=== PATIENT | female | born 1985 | race African-American/Black ===

== ENCOUNTER 2016-12-09 18:15 | Day surgery (SDC) | payer OTHER ==
[2016-12-09 18:20] VITALS: BMI 32.5
[2016-12-09] MEDS ORDERED: SODIUM CHLORIDE 1,000 ML IV STA (19:27)
[2016-12-09] MEDS ORDERED: ACETAMINOPHEN 1000 MG/100 ML VIAL (NON FORMULARY) IVPB ONE (19:27)
[2016-12-09] MEDS ORDERED: ACETAMINOPHEN INJECTION 100 ML IVPB ONE ×2 (19:31→20:01)
--- NOTE | 2016-12-09 19:36 | PDOC ---
History of Present Illness - History of Present Illness Initial Comments: 12/09/16 19:44 The patient is a 31 year old, A2, approximately 6 weeks , sent to the hospital by her BUCKET TURNER for an emergency D&C. The patient reports she began to experience progressively worsening vaginal bleeding 2 days ago. She was seen by her BUCKET TURNER yesterday, where a gestational US showed a heartbeat and closed cervical os. Today, she had a repeat US and no HR was detected, and she was sent to the hospital for further management of her care. The patient also complains of moderate lower back and lower abdominal pain. No fever or chills. No nausea, vomiting, or diarrhea. BUCKET TURNER: Dr. Wheeler <Bernadette Painting - Last Filed: 12/09/16 19:44> - General History Source: Patient Exam Limitations: No Limitations <Will Guillory - Last Filed: 12/09/16 20:03> - General Chief Complaint: Vaginal Bleeding Stated Complaint: PCP SENT Time Seen by Provider: 12/09/16 19:26 Past History <Bernadette Painting - Last Filed: 12/09/16 19:44> - Past Medical History Asthma: Yes - Surgical History Cholecystectomy: Yes - Psycho/Social/Smoking Cessation Hx Anxiety: No Suicidal Ideation: No Smoking Status: Yes Smoking History: Current every day smoker Have you smoked in the past 12 months: No Number of Cigarettes Smoked Daily: 1 Information on smoking cessation initiated: No Hx Alcohol Use: No Drug/Substance Use Hx: No <Will Guillory - Last Filed: 12/09/16 20:03> - Past Medical History Allergies/Adverse Reactions: Allergies Allergy/AdvReac Type Severity Reaction Status Date / Time No Known Allergies Allergy Verified 12/09/16 18:17 Home Medications: Ambulatory Orders Amoxicillin 500 mg PO BID #14 capsule 04/13/13 Carbamide Peroxide [Debrox] 15 ml AD BID #10 drops 04/13/13 Ibuprofen [Motrin -] 800 mg PO TID #30 tablet 04/13/13 No Home Medications 0 dose .ROUTE UTDICT 04/13/13 Ofloxacin Otic [Floxin Otic -] 10 drop AD DAILY 7 Days 04/13/13 Review of Systems - Review of Systems Able to Perform ROS?: Yes Comments:: 12/09/16 19:49 GENERAL/CONSTITUTIONAL: No fever or chills. No weakness. HEAD, EYES, EARS, NOSE AND THROAT: No change in vision. No ear pain or discharge. No sore throat CARDIOVASCULAR: No chest pain or shortness of breath. RESPIRATORY: No cough, wheezing, or hemoptysis. GASTROINTESTINAL: No nausea, vomiting, diarrhea or constipation. GENITOURINARY: +Vaginal bleedingx2 days with lower back pain and suprapubic pain back. No dysuria, frequency, or change in urination. MUSCULOSKELETAL: No joint or muscle swelling or pain. No neck pain. SKIN: No rash NEUROLOGIC: No headache, vertigo, loss of consciousness, or change in strength/ sensation. ENDOCRINE: No increased thirst. No abnormal weight change. HEMATOLOGIC/LYMPHATIC: No anemia, easy bleeding, or history of blood clots. ALLERGIC/IMMUNOLOGIC: No hives or skin allergy. <Bernadette Painting - Last Filed: 12/09/16 19:44> *Physical Exam - Vital Signs Last Vital Signs Temp Pulse Resp BP Pulse Ox 98.4 F 66 20 130/63 100 12/09/16 18:17 12/09/16 18:17 12/09/16 18:17 12/09/16 18:17 12/09/16 18:17 - Physical Exam Comments: 12/09/16 19:50 GENERAL: Awake, alert, and fully oriented. Uncomfortable appearing. HEAD: No signs of trauma EYES: PERRLA, EOMI, sclera anicteric, conjunctiva clear ENT: Auricles normal inspection, hearing grossly normal, nares patent, oropharynx clear without exudates. Moist mucosa NECK: Normal ROM, supple, no lymphadenopathy, JVD, or masses LUNGS: Breath sounds equal, clear to auscultation bilaterally. No wheezes, and no crackles HEART: Regular rate and rhythm, normal S1 and S2, no murmurs, rubs or gallops ABDOMEN: Suprapubic tenderness to palpation. Soft, normoactive bowel sounds. No guarding, no rebound. No masses EXTREMITIES: Normal range of motion, no edema. No clubbing or cyanosis. No cords, erythema, or tenderness NEUROLOGICAL: Cranial nerves II through XII grossly intact. Normal speech, normal gait SKIN: Warm, Dry, normal turgor, no rashes or lesions noted. <Bernadette Painting - Last Filed: 12/09/16 19:44> - Vital Signs Last Vital Signs Temp Pulse Resp BP Pulse Ox 98.4 F 66 20 130/63 100 12/09/16 18:17 12/09/16 18:17 12/09/16 18:17 12/09/16 18:17 12/09/16 18:17 <Will Guillory - Last Filed: 12/09/16 20:03> Medical Decision Making - Medical Decision Making 12/09/16 19:48 Case discussed with patient's BUCKET TURNER Dr. Wheeler. <Bernadette Painting - Last Filed: 12/09/16 19:44> - Medical Decision Making 12/09/16 19:51 A portion of this note was documented by scribe services under my direction. I have reviewed the details of the note, within reason, and agree with the documentation with the following case summary and management plan written by me. Patient treated in the ED. Nursing notes are reviewed and incorporated into the medical decision-making. Vital signs reviewed. Peripheral IV access obtained by the nurse, laboratory studies are drawn and sent, reviewed and interpreted by myself. Vital Signs Temp Pulse Resp BP Pulse Ox 98.4 F 66 20 130/63 100 12/09/16 18:17 12/09/16 18:17 12/09/16 18:17 12/09/16 18:17 12/09/16 18:17 31 year old F c/ hx asthma, ~[address] in [address] Dr. Wheeler for D&C. Pt had spotting yesterday. Had u/s done yesterday which show a FHR and was instructed to watch. Today, had worsening bleed. She had an ultrasound performed and demonstrated NO FHR. Pt was sent to ED for D&C. Case discussed with Dr. Wheeler. Pt to go to D&C tonight. Nursing reinforced steel placing supervisor Navya called and now aware. Pt kept NPO. Labs ordered. Case discussed in detail with admitting physician including history, physical exam and ancillary studies. Admitting physician has assumed care for the patient, will follow all pending diagnostics and will complete the evaluation and treatment. <Will Guillory - Last Filed: 12/09/16 20:03> *DC/Admit/Observation/Transfer - Attestations Scribe Attestion: 12/09/16 19:50 Documentation prepared by Bernadette Painting, acting as medical administrative technician for Will Guillory MD. <Bernadette Painting - Last Filed: 12/09/16 19:44> - Discharge Dispostion Admit: Yes <Will Guillory - Last Filed: 12/09/16 20:03> Diagnosis at time of Disposition: Antepartum hemorrhage Qualifiers: Trimester: first trimester Qualified Code(s): O46.91 - Antepartum hemorrhage, unspecified, first trimester - Discharge Dispostion Condition at time of disposition: Stable - Referrals Referrals: Misbah Garcia [Primary Care Provider] -
[2016-12-09 20:08] LABS: BASOPHIL 0.4 % (0-2.0); EOSINOPHIL 1.1 % (0-4.5); MCH 26.9 pg (25.7-33.7); MCHC 33.2 g/dl (32.0-36.0); MEAN CELL VOLUME 80.9 fl (80-96); MEAN PLT VOLUME 9.5 fl (7.5-11.1); NEUTROPHILS 54.7 % (42.8-82.8); PLATELET COUNT 202 K/MM3 (134-434); RDW 12.8 % (11.6-15.6); WHITE BLOOD COUNT 4.9 K/mm3 (4.0-10.0)
[2016-12-09 20:19] LABS: INR 1.08 (0.82-1.09); PROTHROMBIN TIME (PATIENT) 11.9 SEC (9.98-11.88)
[2016-12-09 20:22] LABS: ACTIVATED PTT 31.1 SECONDS (26.9-34.4)
[2016-12-09] MEDS ORDERED: morphine CARPU-JECT 4 MG/1 ML DISP.SYRIN IVPUSH ONE (20:27)
[2016-12-09] MEDS ORDERED: morphine CARPU-JECT 4 MG/1 ML DISP.SYRIN ONE (20:29)
[2016-12-09 20:30] LABS: ALBUMIN 4.4 g/dl (3.4-5.0); ANION GAP 9 (8-16); BILIRUBIN,TOTAL 0.4 mg/dL (0.2-1.0); CALCIUM 9.3 mg/dL (8.5-10.1); CO2 25 mmol/L (21-32); CREATININE 0.7 mg/dL (0.55-1.02); GLUCOSE,RANDOM 85 mg/dL (74-106); SGOT/AST 16 U/L (15-37); SGPT/ALT 26 U/L (12-78); TOT PROT 8.5 g/dl (6.4-8.2)
[2016-12-09 20:45] LABS: ALK PHOS 78 U/L (45-117)
[2016-12-09] MEDS ORDERED: PROPOFOL 20 ML ONE ×2 (20:56)
[2016-12-09] MEDS ORDERED: MIDAZOLAM HCL 2 MG/2 ML SINGLE DOSE VIAL ONE (20:56)
[2016-12-09] MEDS ORDERED: DESFLURANE GAS 240 ML BOTTLE IH ONE (20:57)
[2016-12-09] MEDS ORDERED: SUCCINYLCHOLINE CHLORIDE 200 MG/10 ML VIAL ONE (21:00)
[2016-12-09] MEDS ORDERED: GLYCOPYRROLATE 0.2 MG/1 ML VIAL ONE (21:25)
[2016-12-09] MEDS ORDERED: DEXAMETHASONE SOD PHOSPHATE 4 MG/1 ML VIAL ONE (21:25)
[2016-12-09] MEDS ORDERED: ONDANSETRON 4 MG/2 ML VIAL ONE (21:25)
[2016-12-09] MEDS ORDERED: LIDOCAINE HCL/PF 2% SDV 5ML VIAL ONE (21:25)
[2016-12-09] MEDS ORDERED: ceFAZolin SODIUM 1 GM VIAL IVPB ONE (21:30)
--- NOTE | 2016-12-09 22:03 | HP ---
Satellite H - Chief Complaint Chief Complaint: Vainal bleeding from missed History of Present Illness: 31 yo with missed ab seen by usg & vaginal bleeding for DC History Source: Patient - Past Medical History Allergies/Adverse Reactions: Allergies Allergy/AdvReac Type Severity Reaction Status Date / Time No Known Allergies Allergy Verified 12/09/16 18:17 ...: Yes Satellite Physical Exam - Physical Examination Vital Signs: Vital Signs Period Temp Pulse Resp BP Sys/Hernandez Pulse Ox Last 24 Hr 98.4 F 66 20 130/63 100 General Appearance: Well Nourished, Well Developed ENT: Clear Lung: Clear to auscultation Breasts: Soft, Non-Tender Abdomen: Soft Extremities: No edema Pelvic Exam: Within normal limits External Genitalia, Within normal limits [place], Other Vagina (large clots), Other Cervix (os open), Other Uterus ( enlarged) Neurological: Intact, Alert, Oriented Satellite Impression/Plan - Impression/Plan Operative Procedure: suction DC Date to be Performed: 12/09/16
[2016-12-09] MEDS ORDERED: IBUPROFEN 400 MG TABLET (FP) PO PRN (22:04)
[2016-12-09] MEDS ORDERED: ACETAMINOPHEN 325 MG TABLET (FP) PO PRN (22:04)
--- NOTE | 2016-12-09 22:06 | OP ---
Operative Note - Note: Operative Date: 12/09/16 Pre-Operative Diagnosis: demise. Vaginal bleeding Operation: Suction DC Post-Operative Diagnosis: Same as Pre-op Surgeon: Teresita Wheeler Anesthesia: General Estimated Blood Loss (mls): 50 Operative Report Dictated: Yes
[2016-12-09] MEDS ORDERED: ONDANSETRON 4 MG/2 ML VIAL IVPUSH PRN (22:09)
[2016-12-09] MEDS ORDERED: oxyCODONE HCL 5 MG TABLET PO PRN ×2 (22:13)
[2016-12-09] MEDS ORDERED: LACTATED RINGERS SOLUTION 1,000 ML IV SCH (22:15)
[2016-12-09 22:48] VITALS: PULSE 68
[2016-12-10 00:27] VITALS: BP 130/52; TEMP 98.4
--- NOTE | 2016-12-10 08:50 | OP ---
DATE OF OPERATION: 12/09/2016 PREOPERATIVE DIAGNOSIS: demise, vaginal bleeding. OPERATION: Suction dilatation and curettage. POSTOPERATIVE DIAGNOSIS: demise, vaginal bleeding. SURGEON: Teresita Wheeler MD ANESTHESIA: General. ESTIMATED BLOOD LOSS: 50 mL. PROCEDURE: Patient was taken to the operating room, placed in dorsal lithotomy position, prepped and draped in the usual sterile fashion. A time-out was performed in accordance with hospital regulations. A speculum was placed in the vagina. A large amount of clots was seen in the vagina. Suction of the clots was done and tenaculum was then used to grasp the anterior lip of the cervix. Suction dilatation and curettage was then performed, and a large amount of clots and tissue was removed from the patients uterus and endometrium. After suction dilatation and curettage had been done, all instruments were removed, count was correct, and patient tolerated the procedure well. Estimated blood loss was 50 mL. Tati [id number] MTDD
--- NOTE | 2016-12-13 13:04 | PATH ---
Surgical Pathology Report Patient Name: VON SANCHEZ Med. Rec. #: [id number] /Age/Gender: 1985 (Age: 31) / F Account: [id number] Location: AMBULATORY SURG Taken: 12/09/2016 Received: 12/12/2016 Reported: 12/13/2016 Physicians: Teresita Wheeler M.D. Specimen(s) Received UTERINE CONTENTS Clinical History Missed Final Diagnosis UTERINE CONTENTS: NO SOMATIC TISSUE IDENTIFIED. CHORIONIC VILLI PRESENT, FOCALLY HYDROPIC AND FIBROTIC. FRAGMENTS OF DECIDUA. Electronically Signed Santos Ewing M.D. Gross Description Received in formalin labeled "uterine contents" is a 12.5 x 10.0 x 0.8 cm aggregate of red-brown soft tissue fragments admixed with blood clot. No definite villous tissue or somatic tissue is identified. Shot Hole Driller portions are submitted in 3 cassettes. /12/12/2016 saudi/12/12/2016
== END 2016-12-10 00:20 | disposition home or self-care (01) ==
LOC: JER 18:15 → JOR 20:04 → JASUSAT 20:04 → JOR 20:48 → J3W 22:53 → JOR 12-10 00:20
PROVIDERS: ATTEND Obstetrics & Gynecology
PROC: 10D17ZZ Extraction of Products of Conception, Retained, Via Natural or Artificial Opening (ICD-10-PCS; principal; 2016-12-09 21:00)
DX: O02.1 Missed abortion (principal); Z3A.01 Less than 8 weeks gestation of pregnancy
CPT/HCPCS: 36415; 80053; 84702; 85025; 85610; 85730; 86850; 86900; 86901; 88305-TC; 94760; 99284-25

== ENCOUNTER 2017-06-08 16:44 | Emergency (ER) | payer OTHER ==
[2017-06-08 16:54] VITALS: BP 103/85; PULSE 82; TEMP 98.3; BMI 38.6
--- NOTE | 2017-06-08 17:24 | PDOC ---
History of Present Illness - General Chief Complaint: Ear Problem Stated Complaint: EAR INFECTION Time Seen by Provider: 06/08/17 17:06 History Source: Patient - History of Present Illness Initial Comments: 06/08/17 17:20 This is a 31-year-old woman past medical history of asthma and multiple ear infections who presents today with 2-1/2 days of left ear pain now radiating to the right ear. Patient denies any drainage and/or discharge from either ear. Has been under the care of an otolaryngologists patient does not remember the name. Patient now with pain behind the and in the occipital area of the head. Denies any blurry vision, diplopia. Patient denies any fevers, chills, nausea, vomiting, shortness of breath, chest pain. Timing/Duration: other (2.5 days) Past History - Past Medical History Allergies/Adverse Reactions: Allergies Allergy/AdvReac Type Severity Reaction Status Date / Time No Known Allergies Allergy Verified 06/08/17 16:51 Home Medications: Ambulatory Orders Amox-Tr/K Cl [Augmentin - 875Mg Tablet] 1 tab PO BID #20 tablet 06/08/17 Asthma: Yes - Surgical History Cholecystectomy: Yes - Reproductive History (#): 6 Para: 1 Therapeutic (s) & number: No Spontaneous : 3 - Immunization History Immunization Up to Date: Yes - Suicide/Smoking/Psychosocial Hx Smoking Status: Yes Smoking History: Current every day smoker Have you smoked in the past 12 months: No Number of Cigarettes Smoked Daily: 4 Information on smoking cessation initiated: No Hx Alcohol Use: No Drug/Substance Use Hx: No Substance Use Type: None Review of Systems - Review of Systems Able to Perform ROS?: Yes Is the patient limited Khmer proficient: No Constitutional: No: Symptoms Reported HEENTM: Yes: See HPI Respiratory: No: Symptoms reported Cardiac (ROS): No: Symptoms Reported ABD/GI: No: Symptoms Reported : No: Symptoms Reported Musculoskeletal: No: Symptoms Reported Integumentary: No: Symptoms Reported Neurological: No: Symptoms reported *Physical Exam - Vital Signs Last Vital Signs Temp Pulse Resp BP Pulse Ox 98.3 F 82 16 103/85 100 06/08/17 16:51 06/08/17 16:51 06/08/17 16:51 06/08/17 16:51 06/08/17 16:51 - Physical Exam HEENT: positive: EOMI, BECCA, Pharynx Normal, TM Dull, Other (submandibular lymphadenopathy) Neck: positive: Trachea midline, Supple Respiratory/Chest: positive: Lungs Clear, Normal Breath Sounds. negative: Respiratory Distress Cardiovascular: positive: Regular Rhythm, Regular Rate, S1, S2. negative: Edema , Murmur Musculoskeletal: positive: Normal Inspection. negative: CVA Tenderness Extremity: positive: Normal Capillary Refill, Normal Inspection, Normal Range of Motion Integumentary: positive: Normal Color, Dry, Warm Neurologic: positive: vice provost II-XII NML intact, Fully Oriented, Motor Strength 5/5 Medical Decision Making - Medical Decision Making 06/08/17 17:20 A/P: This is a 31-year-old woman past medical history of asthma and multiple ear infections who presents today with 2-1/2 days of left ear pain now radiating to the right ear. Patient denies any drainage and/or discharge from either ear. Has been under the care of an otolaryngologists patient does not remember the name. Patient now with pain behind the and in the occipital area of the head. Denies any blurry vision, diplopia. Patient denies any fevers, chills, nausea, vomiting, shortness of breath, chest pain. TMs dull with retractions with left worse than right. External auditory canal healthy-appearing without drainage and /or discharge. Submandibular lymph nodes palpable bilaterally. Cervical lymph nodes nonpalpable. Oropharynx without erythema no exudates noted. Lungs clear to auscultation bilaterally S1 and S2 present murmurs rubs or gallop. Dx: AOM I'll prescribe 10 day course of Augmentin 875 mg twice a day. Will give 1 g of Tylenol now. Patient to follow-up with her ENT within 1 week. I discussed the physical exam findings, ancillary test results and final diagnoses with the patient. I answered all of the patient's questions. The patient was satisfied with the care received and felt comfortable with the discharge plan and treatment plan. The patient will call Dr. Garcia within 96 hours to arrange follow-up and will return to the Emergency Department with any new, persistent or worsening symptoms. *DC/Admit/Observation/Transfer Diagnosis at time of Disposition: Acute otitis media, bilateral - Discharge Dispostion Disposition: HOME Condition at time of disposition: Stable Admit: No - Prescriptions Prescriptions: Amox-Tr/K Cl [Augmentin - 875Mg Tablet] 1 tab PO BID #20 tablet - Referrals Referrals: Misbah Garcia [Primary Care Provider] - - Patient Instructions Additional Instructions: Take Augmentin as prescribed. Keep well-hydrated. Take Tylenol as directed by manufacturers instructions as needed for pain. Follow-up with Dr. Garcia within 1 week. Symptoms do not resolve contact your ENT doctor for an appointment within one week. Return to emergency department for any discharge, drainage, severe pain, hearing loss, any other concerns. Thank you very much for choosing us to provide your emergent healthcare needs.
[2017-06-08] MEDS ORDERED: ACETAMINOPHEN 500 MG TABLET (FP) PO ONE (17:28)
[2017-06-08] MEDS ORDERED: ACETAMINOPHEN 500 MG TABLET (FP) ONE (17:33)
== END 2017-06-08 17:34 | disposition home or self-care (01) ==
LOC: JERFT 16:44
DX: H66.93 Otitis media, unspecified, bilateral (principal); J45.909 Unspecified asthma, uncomplicated; F17.210 Nicotine dependence, cigarettes, uncomplicated
CPT/HCPCS: 99281-25

== ENCOUNTER 2017-09-06 12:51 | Emergency (ER) | payer OTHER ==
[2017-09-06 12:58] VITALS: BMI 40.7
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
[2017-09-06 15:56] LABS: URINE APPEARANCE SLCLOUDY; URINE BILIRUBIN NEGATIVE (NEGATIVE); URINE BLOOD NEGATIVE (NEGATIVE); URINE COLOR YELLOW; URINE GLUCOSE (UA) NEGATIVE (NEGATIVE); URINE KETONE NEGATIVE (NEGATIVE); URINE LEUK ESTERASE TRACE (NEGATIVE); URINE NITRITE NEGATIVE (NEGATIVE); URINE PROTEIN NEGATIVE (NEGATIVE)
--- NOTE | 2017-09-06 16:11 | PDOC ---
Attending Attestation - Resident Resident Name: Rivas Vasquez - ED Attending Attestation I have performed the following: I have examined & evaluated the patient, The case was reviewed & discussed with the resident, I agree w/resident's findings & plan, Exceptions are as noted - Medical Decision Making 09/06/17 16:11 I, Dr. Sherlyn Beatty, DO, attest that this document has been prepared under my direction and personally reviewed by me in its entirety. I further attest, that it accurately reflects all work, treatment, procedures and medical decision -making performed by me. 09/06/17 16:29 a/p: 31yo female with flushing sensation -fever and viral URI on monday now with flank pain no cva ttp no fever today will check ua, ucg bg po challenge neuro intact will monitor and reassess <Sherlyn Beatty - Last Filed: 09/06/17 16:41> - HPI HPI: 09/06/17 19:41 Patient is a 31 year old female with a significant past medical history of Asthma who presents to the ED with complaints of right flank pain that began this afternoon. Patient reports going to her pain management appointment this afternoon when she began to experience sudden right sided flank pain. She reports experiencing heaviness in her eyes, mouth dryness and heart palpitations. Patient also reports experiencing increased sweating and dizziness. She reports experiencing fever since monday as well as sore throat , due to strep that she states subsided yesterday. Patient reports the last thing she ingested was half a turkey sandwich at 6 am this morning. She reports her last menstrual cycle was 2 weeks ago. Patient's glucose level is current 88 here in the ED. Allergies: None Social history: Current smoker (2 cigarettes per day). Social drinker. No illicit drugs. Surgical history: Cholecystectomy PMD: Dr. Garcia - Physicial Exam PE: 09/06/17 19:41 GENERAL: Awake, alert, and fully oriented, in no acute distress HEAD: No signs of trauma EYES: PERRLA, EOMI, sclera anicteric, conjunctiva clear ENT: Auricles normal inspection, hearing grossly normal, nares patent, oropharynx clear without exudates. Moist mucosa NECK: Normal ROM, supple, no lymphadenopathy, JVD, or masses LUNGS: Breath sounds equal, clear to auscultation bilaterally. No wheezes, and no crackles HEART: Regular rate and rhythm, normal S1 and S2, no murmurs, rubs or gallops ABDOMEN: Soft, nontender, normoactive bowel sounds. No guarding, no rebound. No masses EXTREMITIES: Normal range of motion, no edema. No clubbing or cyanosis. No cords, erythema, or tenderness NEUROLOGICAL: Cranial nerves II through XII grossly intact. Normal speech, normal gait SKIN: Warm, Dry, normal turgor, no rashes or lesions noted. - Medical Decision Making 09/06/17 19:42 Documentation prepared by Niko Pierre, acting as regional medical director for Sherlyn Beatty DO, MD/. <Niko Pierre - Last Filed: 09/06/17 19:42> Heart Score/ECG Review - ECG Intrepretation Comment:: 09/06/17 16:41 sinus at 95, nl axis, nl interval, t wave inversions III that are nonspecific, no acute st/t wave findings <Sherlyn Beatty - Last Filed: 09/06/17 16:41>
[2017-09-06 16:20] LABS: HCG,QUALITATIVE URINE NEGATIVE
[2017-09-06] MEDS ORDERED: IBUPROFEN 400 MG TABLET (FP) PO ONE ×2 (16:31→16:35)
[2017-09-06] MEDS ORDERED: NITROFURANTOIN MACROCRYSTAL 50 MG CAPSULE (FP) ONE (16:34)
[2017-09-06] MEDS ORDERED: NITROFURANTOIN MACROCRYSTAL 50 MG CAPSULE (FP) PO SCH (16:45)
[2017-09-06 17:00] VITALS: BP 132/82; PULSE 88; TEMP 98.6
[2017-09-06 17:07] LABS: EPI CELLS RARE /HPF (FEW); URINE BACTERIA RARE /hpf (NONE SEEN); URINE MUCUS RARE
--- NOTE | 2017-09-07 09:11 | EKG ---
Test Reason : Blood Pressure : / mmHG Vent. Rate : 095 BPM Atrial Rate : 095 BPM P-R Int : 166 ms QRS Dur : 088 ms QT Int : 336 ms P-R-T Axes : 050 028 -23 degrees QTc Int : 422 ms NORMAL SINUS RHYTHM POSSIBLE LEFT ATRIAL ENLARGEMENT T WAVE ABNORMALITY, CONSIDER INFERIOR ISCHEMIA ABNORMAL ECG WHEN COMPARED WITH ECG OF 29-AUG-2010 15:59, NO SIGNIFICANT CHANGE WAS FOUND Confirmed by JADA PATTERSON, HOLLY ([id number]) on 09/07/2017 9:10:33 AM Referred By: Confirmed By:HOLLY ELIAS MD
== END 2017-09-06 16:50 | disposition home or self-care (01) ==
LOC: JER 12:51
DX: R23.2 Flushing (principal); N39.0 Urinary tract infection, site not specified; J45.909 Unspecified asthma, uncomplicated; F17.210 Nicotine dependence, cigarettes, uncomplicated
CPT/HCPCS: 81003; 81015; 82962; 84703; 93005; 93010; 99282-25

== ENCOUNTER 2017-11-01 12:51 | Emergency (ER) | payer OTHER ==
[2017-11-01 12:55] VITALS: TEMP 98; BMI 40.3
--- NOTE | 2017-11-01 13:20 | PDOC ---
Attending Attestation - HPI HPI: 11/01/17 13:30 The patient is a 32 year old female, with a significant past medical history of asthma and back pain, who presents to the emergency department with chest pain for several days. The patient describes her pain as a pressure that is nonradiating in nature. The patient reports visiting her PCP, Dr. Haynes with similar symptoms, and states he referred her to Dr. Liao(cardiology). After being evaluated by Dr. Liao, patient reports she is scheduled for nuclear exam to rule out unstable angina. Patient denies any shortness of breath diaphoresis or palpitations. She denies any fever, chills, abdominal pain, nausea, or vomiting. <Alphonse Cheema - Last Filed: 11/01/17 13:30> - Resident Resident Name: Keyon Dai - ED Attending Attestation I have performed the following: I have examined & evaluated the patient, The case was reviewed & discussed with the resident, I agree w/resident's findings & plan, Exceptions are as noted - Physicial Exam PE: 11/01/17 15:37 Patient is awake and alert, well-nourished, in no apparent distress; Normocephalic and atraumatic PERRLA, EOMI CTA RRR, + bilateral parasternal tenderness to palpation reproducing the patient's symptoms Soft, nontender, nondistended No lower extremity edema. - Medical Decision Making 11/01/17 15:37 Patient is a 32-year-old female with no significant past medical history who presents to the ER with atraumatic recurrent chest discomfort. Initial EKG shows no evidence of acute ischemia. Patient underwent an outpatient echocardiogram which was normal according to Dr. Santos of cardiology. Will administer aspirin, sublingual nitroglycerin as well as GI cocktail. Will obtain serial cardiac enzymes to rule out ID. We'll consider discharge for outpatient dobutamine stress echo as scheduled. Patient's heart score is noted to be 1. <Evangelist Ford - Last Filed: 11/01/17 15:38> Critical Care Time/[facility] Note - Medical Decision Making Note: 11/01/17 13:31 First call placed to Dr. Liao at 13:35. Awaiting call back. <Alphonse Cheema - Last Filed: 11/01/17 13:30>
[2017-11-01] MEDS ORDERED: NITROGLYCERIN SUBLINGUAL 1/150 0.4 MG TAB ONE ×2 (13:37→14:23)
[2017-11-01] MEDS: NITROGLYCERIN SUBLINGUAL 1/150 0.4 MG TAB SL ONE (13:38)
[2017-11-01] MEDS ORDERED: ASPIRIN 81 MG CHEWABLE TABLETS PO ONE (13:39)
[2017-11-01] MEDS ORDERED: ASPIRIN 81 MG CHEWABLE TABLETS ONE (13:49)
[2017-11-01] MEDS ORDERED: RANITIDINE HCL 150 MG TABLET (FP) PO ONE (14:01)
[2017-11-01] MEDS ORDERED: NITROGLYCERIN SUBLINGUAL 1/150 0.4 MG TAB SL ONE (14:01)
[2017-11-01] MEDS ORDERED: MAG HYDROX/AL HYDROX/SIMETH 30 ML UNIT-DOSE CUP PO ONE (14:02)
--- NOTE | 2017-11-01 14:07 | PDOC ---
History of Present Illness - General Chief Complaint: Chest Pain Stated Complaint: CHEST PAIN Time Seen by Provider: 11/01/17 13:19 History Source: Patient Exam Limitations: No Limitations - History of Present Illness Initial Comments: 11/01/17 14:25 32F with pmh of asthma and back pain, who presents to the emergency department with chest pain for several days. The patient describes her pain as a pressure that is nonradiating in nature. The patient reports visiting her PCP, Dr. Haynes with similar symptoms, and states he referred her to Dr. Liao( cardiology). After being evaluated by Dr. Liao, patient reports she is scheduled for nuclear exam to rule out unstable angina. Patient denies any shortness of breath diaphoresis or palpitations. She denies any fever, chills, abdominal pain, nausea, or vomiting. Past History - Past Medical History Allergies/Adverse Reactions: Allergies Allergy/AdvReac Type Severity Reaction Status Date / Time No Known Allergies Allergy Verified 11/01/17 12:55 Home Medications: Ambulatory Orders Oxycodone HCl/Acetaminophen [Percocet 10-325 mg Tablet] 1 each PO QID PRN Zolpidem Tartrate [Ambien] 10 mg PO HS 09/06/17 Donepezil HCl [Aricept -] 5 mg PO DAILY 11/01/17 Duloxetine HCl 20 mg PO DAILY 11/01/17 LORazepam [Ativan] 1 mg PO DAILY 11/01/17 Asthma: Yes COPD: No Other medical history: back pain - Surgical History Cholecystectomy: Yes - Reproductive History (#): 6 Para: 1 Therapeutic (s) & number: No Spontaneous : 3 - Immunization History Immunization Up to Date: Yes - Suicide/Smoking/Psychosocial Hx Smoking Status: Yes Smoking History: Former smoker Have you smoked in the past 12 months: Yes Number of Cigarettes Smoked Daily: 2,018 If you are a former smoker, when did you quit?: 2018 Information on smoking cessation initiated: No Hx Alcohol Use: No Drug/Substance Use Hx: No Substance Use Type: None Review of Systems - Review of Systems Able to Perform ROS?: Yes Is the patient limited Swedish proficient: No Constitutional: No: Symptoms Reported HEENTM: No: Symptoms Reported Respiratory: No: Symptoms reported, Cough, Orthopnea, Shortness of Breath, SOB with Exertion, SOB at Rest Cardiac (ROS): Yes: See HPI ABD/GI: No: Symptoms Reported : No: Symptoms Reported Musculoskeletal: No: Symptoms Reported Integumentary: No: Symptoms Reported Neurological: No: Symptoms reported All Other Systems: Reviewed and Negative *Physical Exam - Vital Signs Last Vital Signs Temp Pulse Resp BP Pulse Ox 98 F 98 H 19 126/62 99 11/01/17 12:53 11/01/17 12:53 11/01/17 12:53 11/01/17 12:53 11/01/17 12:53 - Physical Exam General Appearance: Yes: Nourished, Appropriately Dressed, Apparent Distress HEENT: positive: EOMI, BECCA, Normal ENT Inspection Neck: negative: Tender Respiratory/Chest: positive: Chest Tender (mildly), Normal Breath Sounds. negative: Respiratory Distress Cardiovascular: positive: Regular Rhythm, Regular Rate, S1, S2. negative: Edema , JVD, Murmur, Bradycardia, Irregularly Irregular Gastrointestinal/Abdominal: positive: Normal Bowel Sounds, Soft, Protuberent. negative: Tender Musculoskeletal: positive: Normal Inspection. negative: CVA Tenderness Extremity: positive: Normal Capillary Refill, Normal Inspection, Normal Range of Motion Integumentary: positive: Normal Color, Dry, Warm ED Treatment Course - LABORATORY CBC & Chemistry Diagram: 11/01/17 14:10 11/01/17 14:10 - Medications Given in the ED: ED Medications Discontinued Medications Generic Name Dose Route Start Last Admin Trade Name Freq PRN Reason Stop Dose Admin Aspirin 162 mg 11/01/17 13:39 11/01/17 13:46 Asa - PO 11/01/17 13:40 162 mg ONCE ONE Administration Nitroglycerin 0.4 mg 11/01/17 13:28 11/01/17 13:38 Nitrostat - SL 11/01/17 13:29 0.4 mg ONCE ONE Administration Medical Decision Making - Medical Decision Making 11/01/17 14:03 PE can be ruled out by PERC. 11/01/17 15:34 EKG: Normal sinus rhythm Possible Left atrial enlargement T wave abnormality, consider inferior ischemia. 11/01/17 15:[address] Santos of cardiology: patient had normal outpatient echocardiogram. Will administer aspirin, sublingual nitroglycerin as well as GI cocktail. Minimal pain relief with nitro. Will obtain serial cardiac enzymes to rule out LA. We'll consider discharge for outpatient dobutamine stress echo as scheduled for Monday. Patient's heart score is noted to be 1. 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 Murrieta on Monday for your echocardiography. In the meantime, come back to the ER for any new, worsening or concerning symptom such as fever, chills, chest pain, loss of consciousness or difficulty breathing. - Post Discharge Activity
[2017-11-01] MEDS ORDERED: RANITIDINE HCL 150 MG TABLET (FP) ONE (14:22)
[2017-11-01] MEDS ORDERED: MAG HYDROX/AL HYDROX/SIMETH 30 ML UNIT-DOSE CUP ONE (14:23)
[2017-11-01 14:39] LABS: BASO % 0.8 % (0-2.0); EOS % 0.8 % (0-4.5); HEMOGLOBIN 13.1 GM/dL (10.7-15.3); LYMPH % 33.7 % (8-40); MCH 28.1 pg (25.7-33.7); MCHC 33.5 g/dl (32.0-36.0); MEAN CELL VOLUME 83.9 fl (80-96); MEAN PLT VOLUME 9.6 fl (7.5-11.1); NEUT % 58.7 % (42.8-82.8); PLATELET COUNT 202 K/MM3 (134-434); RBC 4.66 M/mm3 (3.60-5.2); RDW 13.6 % (11.6-15.6); WHITE BLOOD COUNT 4.4 K/mm3 (4.0-10.0)
[2017-11-01 15:06] VITALS: BP 126/75; PULSE 82
[2017-11-01 16:02] LABS: ALBUMIN 3.9 g/dl (3.4-5.0); ANION GAP 9 (8-16); BLOOD UREA NITROGEN 8 mg/dL (7-18); CALCIUM 9.1 mg/dL (8.5-10.1); CHLORIDE 106 mmol/L (98-107); CO2 24 mmol/L (21-32); GLUCOSE,RANDOM 84 mg/dL (74-106); POTASSIUM 4.4 mmol/L (3.5-5.1); SODIUM 139 mmol/L (136-145)
[2017-11-01 16:04] LABS: BILIRUBIN,TOTAL 0.2 mg/dL (0.2-1.0); CREATININE 0.7 mg/dL (0.55-1.02); SGOT/AST 12 U/L (15-37); SGPT/ALT 15 U/L (12-78); TOT PROT 7.9 g/dl (6.4-8.2)
[2017-11-01 16:07] LABS: ALK PHOS 67 U/L (45-117)
[2017-11-01] MEDS ORDERED: KETOROLAC TROMETHAMINE 15 MG/ML VIAL ONE ×2 (16:10→16:13)
[2017-11-01] MEDS ORDERED: KETOROLAC TROMETHAMINE 15 MG/ML VIAL IM ONE (16:14)
[2017-11-01] MEDS: KETOROLAC TROMETHAMINE 15 MG/ML VIAL IVPUSH ONE ×2 (16:20→16:33)
[2017-11-01] MEDS ORDERED: LORazepam 1 MG TABLET PO ONE (17:17)
[2017-11-01] MEDS ORDERED: LORazepam 0.5 MG TABLET ONE (17:46)
[2017-11-01] MEDS ORDERED: KETOROLAC TROMETHAMINE 15 MG/ML VIAL IVPUSH ONE (19:22)
--- NOTE | 2017-11-01 19:24 | PDOC ---
*Physical Exam - Vital Signs Last Vital Signs Temp Pulse Resp BP Pulse Ox 98 F 82 18 126/75 100 11/01/17 12:53 11/01/17 14:25 11/01/17 14:25 11/01/17 14:25 11/01/17 14:25 ED Treatment Course - LABORATORY CBC & Chemistry Diagram: 11/01/17 14:10 11/01/17 14:10 - ADDITIONAL ORDERS Additional order review: Laboratory Results 11/01/17 11/01/17 11/01/17 18:22 14:40 14:10 Sodium 139 Potassium 4.4 Chloride 106 Carbon Dioxide 24 Anion Gap 9 BUN 8 Creatinine 0.7 Creat Clearance w eGFR > 60 Random Glucose 84 Calcium 9.1 Total Bilirubin 0.2 D AST 12 L ALT 15 Alkaline Phosphatase 67 Creatine Kinase 78 89 Troponin I < 0.02 < 0.02 Total Protein 7.9 Albumin 3.9 Urine HCG, Qual Negative 11/01/17 14:10 RBC 4.66 MCV 83.9 MCHC 33.5 RDW 13.6 MPV 9.6 Neutrophils % 58.7 Lymphocytes % 33.7 Monocytes % 6.0 Eosinophils % 0.8 Basophils % 0.8 - Medications Given in the ED: ED Medications Discontinued Medications Generic Name Dose Route Start Last Admin Trade Name Freq PRN Reason Stop Dose Admin Al Hydroxide/Mg Hydroxide 30 ml 11/01/17 14:02 11/01/17 14:20 Mylanta Oral Suspension - PO 11/01/17 14:03 30 ml ONCE ONE Administration Aspirin 162 mg 11/01/17 13:39 11/01/17 13:46 Asa - PO 11/01/17 13:40 162 mg ONCE ONE Administration Ketorolac Tromethamine 15 mg 11/01/17 16:04 11/01/17 16:33 Toradol Injection - IVPUSH 11/01/17 16:05 Not Given ONCE ONE Ketorolac Tromethamine 15 mg 11/01/17 16:14 11/01/17 16:21 Toradol Injection - IM 11/01/17 16:15 15 mg ONCE ONE Administration Lorazepam 1 mg 11/01/17 17:17 11/01/17 17:49 Ativan - PO 11/01/17 17:18 1 mg ONCE ONE Administration Nitroglycerin 0.4 mg 11/01/17 13:28 11/01/17 13:38 Nitrostat - SL 11/01/17 13:29 0.4 mg ONCE ONE Administration Nitroglycerin 0.4 mg 11/01/17 14:01 11/01/17 14:20 Nitrostat - SL 11/01/17 14:02 0.4 mg ONCE ONE Administration Ranitidine HCl 150 mg 11/01/17 14:01 11/01/17 14:20 Zantac - PO 11/01/17 14:02 150 mg ONCE ONE Administration Medical Decision Making - Medical Decision Making 11/01/17 19:[address] Dai. Pt c/o back pain - will give one dose of percocet. Troponin (-) x 2 Will prep for d/c *DC/Admit/Observation/Transfer Diagnosis at time of Disposition: Atypical chest pain - Discharge Dispostion Disposition: HOME Condition at time of disposition: Improved - Referrals Referrals: Misbah Garcia [Primary Care Provider] - Rubina Liao MD [Non Staff, Medical] - - Patient Instructions Printed Discharge Instructions: DI for Atypical Chest Pain Additional Instructions: Follow up with your community assistant Dr. Murrieta on Monday for your echocardiography. In the meantime, come back to the ER for any new, worsening or concerning symptom such as fever, chills, chest pain, loss of consciousness or difficulty breathing. - Post Discharge Activity
--- NOTE | 2017-11-07 15:07 | EKG ---
Test Reason : Blood Pressure : / mmHG Vent. Rate : 086 BPM Atrial Rate : 086 BPM P-R Int : 162 ms QRS Dur : 082 ms QT Int : 348 ms P-R-T Axes : 055 044 011 degrees QTc Int : 416 ms NORMAL SINUS RHYTHM POSSIBLE LEFT ATRIAL ENLARGEMENT T WAVE ABNORMALITY, CONSIDER INFERIOR ISCHEMIA ABNORMAL ECG WHEN COMPARED WITH ECG OF 06-SEP-2017 13:10, NO SIGNIFICANT CHANGE WAS FOUND Confirmed by MD AKI, DARWIN ([id number]) on 11/07/2017 3:06:45 PM Referred By: Confirmed By:DARWIN PRABHAKAR MD
== END 2017-11-01 20:38 | disposition home or self-care (01) ==
LOC: JER 12:51
PROC: 3E0233Z Introduction of Anti-inflammatory into Muscle, Percutaneous Approach (ICD-10-PCS; principal; 2017-11-01)
DX: R07.89 Other chest pain (principal); Z87.891 Personal history of nicotine dependence; J45.909 Unspecified asthma, uncomplicated
CPT/HCPCS: 36415; 71045-TC-FY; 80053; 82550; 84484; 84703; 85025; 93005; 93010; 99283-25

== ENCOUNTER 2018-07-26 08:41 | Emergency (ER) | payer OTHER ==
[2018-07-26 08:56] VITALS: BP 117/57; PULSE 101; TEMP 98.2; BMI 40.3
[2018-07-26] MEDS ORDERED: diazePAM 5 MG TABLET PO ONE (09:14)
[2018-07-26] MEDS ORDERED: KETOROLAC TROMETHAMINE 60 MG/2 ML VIAL IM ONE (09:14)
[2018-07-26] MEDS ORDERED: diazePAM 5 MG TABLET ONE (09:16)
[2018-07-26] MEDS ORDERED: KETOROLAC TROMETHAMINE 60 MG/2 ML VIAL ONE (09:16)
--- NOTE | 2018-07-26 09:23 | PDOC ---
History of Present Illness - General Chief Complaint: Pain Stated Complaint: ARM PAIN Time Seen by Provider: 07/26/18 09:03 History Source: Patient Exam Limitations: No Limitations - History of Present Illness Initial Comments: 07/26/18 09:17 32 yr female with right shoulder pain after sleeping in bed for 3 days. Pt denies trauma states she has pain to move her arm. pt denies sob or chest pain. Timing/Duration: unsure Severity: moderate Associated Symptoms: reports: denies symptoms Past History - Past Medical History Allergies/Adverse Reactions: Allergies Allergy/AdvReac Type Severity Reaction Status Date / Time No Known Allergies Allergy Verified 11/01/17 12:55 Home Medications: Ambulatory Orders Oxycodone HCl/Acetaminophen [Percocet 10-325 mg Tablet] 1 each PO QID PRN Zolpidem Tartrate [Ambien] 10 mg PO HS 09/06/17 Donepezil HCl [Aricept -] 5 mg PO DAILY 11/01/17 Duloxetine HCl 20 mg PO DAILY 11/01/17 LORazepam [Ativan] 1 mg PO DAILY 11/01/17 Cyclobenzaprine HCl [Flexeril -] 10 mg PO TID PRN #15 tablet 07/26/18 Ibuprofen 800 mg PO TID PRN #21 tablet 07/26/18 Asthma: Yes COPD: No - Surgical History Cholecystectomy: Yes - Reproductive History (#): 6 Para: 1 Therapeutic (s) & number: No Spontaneous : 3 - Immunization History Immunization Up to Date: Yes - Suicide/Smoking/Psychosocial Hx Smoking Status: Yes Smoking History: Never smoked Have you smoked in the past 12 months: Yes Number of Cigarettes Smoked Daily: 2,018 If you are a former smoker, when did you quit?: 2018 Information on smoking cessation initiated: No Hx Alcohol Use: No Drug/Substance Use Hx: No Substance Use Type: None Review of Systems - Review of Systems Able to Perform ROS?: Yes Is the patient limited Thai proficient: No Constitutional: No: Symptoms Reported HEENTM: No: Symptoms Reported Respiratory: No: Symptoms reported Cardiac (ROS): No: Symptoms Reported ABD/GI: No: Symptoms Reported : No: Symptoms Reported Musculoskeletal: Yes: Symptoms Reported Integumentary: No: Symptoms Reported *Physical Exam - Vital Signs Last Vital Signs Temp Pulse Resp BP Pulse Ox 98.2 F 101 H 16 117/57 L 100 07/26/18 08:53 07/26/18 08:53 07/26/18 08:53 07/26/18 08:53 07/26/18 08:53 - Physical Exam General Appearance: Yes: Nourished, Appropriately Dressed HEENT: positive: EOMI, BECCA Neck: positive: Supple Respiratory/Chest: positive: Lungs Clear, Normal Breath Sounds Cardiovascular: positive: Regular Rhythm, Regular Rate Musculoskeletal: positive: Normal Inspection Extremity: positive: Normal Inspection, Other (unable to lift shoulder ). negative: Tender Integumentary: positive: Normal Color, Dry, Warm Neurologic: positive: automobile insurance claim examiner II-XII NML intact, Fully Oriented, Alert, Normal Mood/ Affect, Normal Response, Motor Strength 5/5 Moderate Sedation - Procedure Monitoring Vital Signs: Procedure Monitoring Vital Signs Temperature 98.2 F 07/26/18 08:53 Pulse Rate 101 H 07/26/18 08:53 Respiratory Rate 16 07/26/18 08:53 Blood Pressure 117/57 L 07/26/18 08:53 O2 Sat by Pulse Oximetry (%) 100 07/26/18 08:53 Procedures - Splinting Sling: Yes ED Treatment Course - RADIOLOGY Radiology Studies Ordered: Category Date Time Status SHOULDER-RIGHT [RAD] Stat Radiology 07/26/18 09:15 Ordered Medical Decision Making - Medical Decision Making 07/26/18 09:23 cc: right shoulder pain for 3 days denies trauma states she slept on the shoulder for 3 days will get xray toradol and valium now 07/26/18 10:03 xray is negative, sling placed strict follow up discussed pt given prescriptions as directed. *DC/Admit/Observation/Transfer Diagnosis at time of Disposition: Shoulder pain, right Qualifiers: Chronicity: acute Qualified Code(s): M25.511 - Pain in right shoulder - Discharge Dispostion Disposition: HOME Condition at time of disposition: Good - Prescriptions Prescriptions: Cyclobenzaprine HCl [Flexeril -] 10 mg PO TID PRN #15 tablet PRN Reason: Muscle Spasms Ibuprofen 800 mg PO TID PRN #21 tablet PRN Reason: Pain - Referrals Referrals: Troy Christine MD [Staff Physician] - - Patient Instructions Additional Instructions: use the sling while awake for only 2hrs a day please remove and apply warm compresses to the shoulder, you should try to move the shoulder as much as you can take the medication as directed follow with the orthopedist the orthopedist for follow up this week call today to make appointment - Post Discharge Activity
== END 2018-07-26 10:17 | disposition home or self-care (01) ==
LOC: JERFT 08:41
PROC: 3E0233Z Introduction of Anti-inflammatory into Muscle, Percutaneous Approach (ICD-10-PCS; principal; 2018-07-26)
DX: M25.511 Pain in right shoulder (principal); X50.1XXA Overexertion from prolonged static or awkward postures, initial encounter; Y93.89 Activity, other specified; Y92.032 Bedroom in apartment as the place of occurrence of the external cause; Y99.8 Other external cause status
CPT/HCPCS: 73030-TC-RT-FY; 99281-25